=== PATIENT | female | born 1950 | race Caucasian/White ===

== ENCOUNTER → 2023-09-16 | Outpatient (CLI) | payer OTHER ==
[~2023-09-16] MED LIST: IOHEXOL 350 MG/ML 100ML INFUS..BTL IV ONE
== END | disposition home or self-care (01) ==
LOC: RAH 10:09
PROVIDERS: ATTEND Family Medicine
DX: Z12.31 Encounter for screening mammogram for malignant neoplasm of breast (principal); I71.20 Thoracic aortic aneurysm, without rupture, unspecified; I51.7 Cardiomegaly; M47.815 Spondylosis without myelopathy or radiculopathy, thoracolumbar region; K76.0 Fatty (change of) liver, not elsewhere classified
CPT/HCPCS: 71275; 77067; Q9967

== ENCOUNTER → 2023-09-30 | Outpatient (CLI) | payer OTHER ==
[~2023-09-30] MED LIST changes: +GADOTERATE MEGLUMINE 10 MMOL/20 ML VIAL IV ONE; -IOHEXOL 350 MG/ML 100ML INFUS..BTL IV ONE
== END | disposition home or self-care (01) ==
LOC: RAH 08:35
PROVIDERS: ATTEND Family Medicine
DX: D36.10 Benign neoplasm of peripheral nerves and autonomic nervous system, unspecified (principal); G31.9 Degenerative disease of nervous system, unspecified
CPT/HCPCS: 70553; A9575

== ENCOUNTER → 2023-10-17 | Outpatient (CLI) | payer OTHER | END | disposition home or self-care (01) | LOC: RAH 13:58 | PROVIDERS: ATTEND Family Medicine | DX: I08.0 Rheumatic disorders of both mitral and aortic valves (principal); M16.12 Unilateral primary osteoarthritis, left hip; R01.1 Cardiac murmur, unspecified; M25.552 Pain in left hip | CPT/HCPCS: 73502; 93306 ==

== ENCOUNTER 2024-04-01 13:21 | Emergency (ER) | payer OTHER ==
[~2024-04-01] VITALS: Ht 154.9 cm; Wt 59.0 kg
[2024-04-01 15:27] LABS: BASOPHILS # (AUTO) 0.05 K/uL (0.00-0.20); BASOPHILS % (AUTO) 0.6 % (0.0-5.0); EOSINOPHILS # (AUTO) 0.15 K/uL (0.00-0.70); EOSINOPHILS % (AUTO) 1.9 % (0.0-8.0); HEMATOCRIT 46.5 % (36-48); IMMATURE GRANULOCYTE ABSOLUTE 0.02 K/uL (0-1); LYMPHOCYTES # (AUTO) 1.5 K/uL (1.0-4.8); LYMPHOCYTES % (AUTO) 19.1 % (21.0-51.0); MEAN CORPUSCULAR HEMOGLOBIN 31.7 pg (27.0-33.0); MEAN CORPUSCULAR HGB CONC 33.8 g/dL (32.0-36.0); MEAN CORPUSCULAR VOLUME 93.9 fL (79-99); MONOCYTES # (AUTO) 0.4 K/uL (0.1-1.0); NEUTROPHILS # (AUTO) 5.7 K/uL (1.8-7.7); NEUTROPHILS % (AUTO) 73.1 % (40.0-77.0); PLATELET COUNT (AUTO) 244 K/uL (130-400); RED BLOOD CELL COUNT(AUTO) 4.95 MIL/uL (4.00-5.50); RED CELL DISTRIBUTION WIDTH 11.6 % (11.0-15.5); WHITE BLOOD COUNT (AUTO) 7.8 K/uL (4.8-10.8)
[2024-04-01 15:40] LABS: APPEARANCE,URINE CLEAR (CLEAR); BILIRUBIN,URINE NEGATIVE (NEGATIVE); COLOR,URINE YELLOW (YELLOW); GLUCOSE, URINE (UA) NEGATIVE (NEGATIVE); KETONES,URINE NEGATIVE (NEGATIVE); LEUKOCYTE ESTERASE ,URINE NEGATIVE Leu/uL (NEGATIVE); NITRATE,URINE NEGATIVE (NEGATIVE); OCCULT BLOOD,URINE NEGATIVE (NEGATIVE); PH,URINE 6.5 (5.0-8.0); PROTEIN,URINE 10 mg/dL (NEGATIVE); UROBILINOGEN,URINE 0.2 mg/dL (0.2-1.0)
[2024-04-01 15:40] LABS: CREATININE 0.6 mg/dL (0.5-1.0); POTASSIUM 4.3 mmol/L (3.5-5.1)
[2024-04-01 15:42] LABS: ADD UA MICROSCOPIC YES
[2024-04-01 15:50] LABS: ALBUMIN 3.8 g/dL (3.5-5.0); BILIRUBIN,TOTAL 0.7 mg/dL (0.2-1.0); TOTAL PROTEIN, SERUM 7.7 g/dL (6.0-8.3)
[2024-04-01 15:51] LABS: MUCUS,URINE RARE LPF (None Seen); SQUAMOUS EPITHELIAL CELL,UR RARE /HPF (0-2)
[2024-04-01] MEDS: HYDRALAZINE 20MG/ML VIAL IV ONE (18:26)
[2024-04-01 19:18] VITALS: BP 148/58; PULSE 62; RESP 18; O2SAT 96
== END 2024-04-01 19:53 | disposition home or self-care (01) ==
LOC: EDH 13:21
DX: I95.9 Hypotension, unspecified (principal); R42 Dizziness and giddiness; R19.7 Diarrhea, unspecified; E03.9 Hypothyroidism, unspecified; E78.00 Pure hypercholesterolemia, unspecified
CPT/HCPCS: 99285; 96374; 70450; 84484; 80053; 85025; 81001; 36415; 93005; J0360

== ENCOUNTER → 2024-09-02 | Outpatient (CLI) | payer OTHER ==
--- NOTE | 2024-09-02 15:39 | HMCIMG ---
US SOFT TISSUE LOWER EXTREMITY REASON: ABSCESS. COMPARISON: None TECHNIQUE: Right thigh ultrasound study was performed with specific attention given to the region of interest. FINDINGS: At the region of interest of right thigh, there is complex hypoechoic structure measuring 19 x 5 x 16 mm may be related to small abscess collection. Other possibilities cannot be excluded. IMPRESSION: At the region of interest of right thigh, there is complex hypoechoic structure measuring 19 x 5 x 16 mm may be related to small abscess collection. Other possibilities cannot be excluded.
== END | disposition home or self-care (01) ==
LOC: RAH 14:39
PROVIDERS: ATTEND Family Medicine
DX: L02.415 Cutaneous abscess of right lower limb (principal)
CPT/HCPCS: 76882

== ENCOUNTER → 2024-09-16 | Outpatient (CLI) | payer OTHER ==
--- NOTE | 2024-09-16 11:12 | HMCIMG ---
MAMMO SCREENING BILATERAL HISTORY: Screening mammogram. COMPARISON: 09/16/2023 TECHNIQUE: Bilateral screening mammogram with CAD was performed with craniocaudal and mediolateral oblique projections. FINDINGS: The breasts are extremely dense which lowers the sensitivity of mammogram. There is no evidence of a dominant mass, or suspicious microcalcification. There is no evidence of nipple retraction or skin thickening. Dystrophic calcifications are seen. IMPRESSION: 1. Stable mammogram. Patient was entered into a reminder system with a target due date for their next mammogram. BI-RADS: CATEGORY 2: BENIGN FINDINGS Recommend monthly self breast exam as well as annual clinical examination. A negative x-ray should not delay biopsy if a dominant or clinically suspicious mass is present, since 8-10% of cancers are not identified by mammography. Dense breasts particularly, may obscure an underlying neoplasm. Some of these may be detected clinically and therefore, clinical examination is an essential part of breast evaluation.
== END | disposition home or self-care (01) ==
LOC: RAH 10:16
PROVIDERS: ATTEND Family Medicine
DX: Z12.31 Encounter for screening mammogram for malignant neoplasm of breast (principal); R92.30 Dense breasts, unspecified
CPT/HCPCS: 77067

== ENCOUNTER → 2025-01-24 | Outpatient (CLI) | payer OTHER ==
--- NOTE | 2025-01-24 17:25 | HMCSR ---
APPROVED REPORT EXAM: Two-dimensional and M-mode echocardiogram with Doppler and color Doppler. INDICATION ICD: R01.1 Cardiac murmur, unspecified 2D Dimensions RVDd3.2 cmLVEF(%)72.6 (>50%)LVED Vol(simp.)69.0 mL IVSd0.7 (0.7-1.1cm)FS(%)42 %LVES Vol(simp.)29.0 mL LVDd4.8 (3.8-5.6cm)LA (2D)3.6 (1.6-4.0cm)LVEF(%, simp.)59 % PWd1.0 (0.7-1.1cm)Ao Root(2D)3.0 (2.0-3.7cm)LA ESV INDEX (BP)37.69 mL/m2 LVDs2.8 (2.5-4.0cm)LVOT diam2.2 (1.8-2.4cm) IVC diam1.4 cm M-Mode Dimensions EPSS0.6 cm LA (MM)4.3 (1.6-4.0cm) Ao Root(MM)2.8 (2.0-3.7cm) Aortic Valve AoV Vmax1.2 m/Angie Peak GR6.2 mmHgLVOT Vmax1.2 m/s AoV VTI0.3 mAo Mean GR3.6 mmHgLVOT VTI0.27 m DWIGHT (VMAX)3.56 cm2Al P1/2T350 msAVA (VTI) 3.6 cm2 Mitral Valve MV E Vmax67.0 cm/sDECEL Lfyd784 ms MV A Vmax82.4 cm/sP 1/2 T71 ms E/A ratio0.8MVA (PHT)3.1 cm2 TDI E/E' Qntvcv37.3E/E' Lateral9.8 Medial E' Peak V3.67 cm/sLateral E' Peak V6.83 cm/s Tricuspid Valve TR Vmax2.4 m/sRVSP22.6 mmHg TR Peak GR22.6 mmHg Left Ventricle The left ventricle is normal size. There is normal LV segmental wall motion. There is normal left greg tricular wall thickness. LVEF is 60-65%. Stage I diastolic dysfunction. Right Ventricle The right ventricle is normal size. The right ventricular systolic function is normal. Atria The left atrium is mildly dilated. The right atrium size is normal. Aortic Valve The aortic valve is normal in structure. Mild aortic regurgitation is present. There is no aortic freddie vular stenosis. Mitral Valve The mitral valve is normal in structure. There is trace of mitral valve regurgitation noted. There is no mitral valve stenosis. Tricuspid Valve The tricuspid valve is normal in structure. There is trace of tricuspid valve regurgitation noted. Pulmonic Valve The pulmonary valve is normal in structure. There is no pulmonic valvular regurgitation. Great Vessels The aortic root is normal in size. The IVC is normal in size and collapses >50% with inspiration. Pericardium There is no pericardial effusion. Other Information Quality : Adequate Conclusion Stage I diastolic dysfunction. LVEF is 60-65%. There is normal LV segmental wall motion.
== END | disposition home or self-care (01) ==
LOC: RAH 12:36
PROVIDERS: ATTEND Internal Medicine
DX: I35.1 Nonrheumatic aortic (valve) insufficiency (principal); I51.7 Cardiomegaly; R01.1 Cardiac murmur, unspecified
CPT/HCPCS: 93306

== ENCOUNTER → 2025-08-09 | Outpatient (CLI) | payer OTHER ==
--- NOTE | 2025-08-10 00:41 | HMCIMG ---
STUDY: MRI Brain with Contrast HISTORY: Post-surgical follow-up for right posterior fossa lesion; evaluation for recurrence. TECHNIQUE: Multiplanar, multisequence MRI of the brain performed before and after intravenous contrast administration. Sequences included axial and sagittal T1-weighted, T2-weighted, FLAIR, DWI/ADC, GRE/SWI, and post-contrast T1-weighted images in axial, coronal, and sagittal planes. Contrast: 13 cc of intravenous Clariscan administered. COMPARISON: None provided. FINDINGS: Cerebral Parenchyma: Age-appropriate diffuse cerebral and cerebellar volume loss. Scattered punctate T2/FLAIR hyperintense foci in bilateral fronto-parietal periventricular and deep white matter consistent with chronic small-vessel ischaemic changes (Fazekas grade I). Focal subacute ischaemic changes are noted in the left peritrigonal white matter showing T2/FLAIR hyperintensity without diffusion restriction or enhancement. No acute infarction, haemorrhage, or mass effect. Posterior Fossa and Post-surgical Region: Post-surgical changes are seen in the right posterior fossa with gliotic foci in the right lateral cerebellar hemisphere corresponding to the previous operative bed. No new parenchymal enhancement or abnormal diffusion restriction at the surgical site. Extra-axial Spaces and Lesions: A well-defined extra-axial enhancing lesion measuring 1.2 ??? 0.6 cm is identified in the right cerebello-pontine angle near the internal auditory meatus/porus acousticus. The lesion demonstrates isointense signal on T1, mildly hyperintense signal on T2, homogeneous enhancement on post-contrast images, and no diffusion restriction or blooming. The interface with adjacent cerebellar tissue is preserved. The internal auditory canal is unremarkable. Brainstem and Cerebellum: Brainstem is normal in signal and contour. The left cerebellar hemisphere appears normal. Right cerebellar hemisphere shows post-surgical gliosis as described. Ventricular System and Midline Structures: Lateral, third, and fourth ventricles are within normal size and configuration. Midline structures are central. Basal cisterns are patent. No hydrocephalus. Pituitary, Orbits, and Skull Base: Pituitary gland, optic chiasm, and orbits appear normal. Skull base structures are intact. No marrow-replacing lesion. Sinuses and Mastoid Air Cells: Paranasal sinuses and mastoid air cells are clear. IMPRESSION: * Post-surgical changes in right posterior fossa with gliotic foci in right lateral cerebellar hemisphere. No abnormal enhancement or diffusion restriction in operative bed. * Small extra-axial enhancing lesion measuring 1.2 ??? 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 * Age-appropriate diffuse cerebral volume loss with Fazekas grade I chronic small-vessel ischaemic changes in bilateral fronto-parietal white matter. * Focal subacute ischemic changes in left peritrigonal white matter. * Radiologic???clinical correlation: postoperative gliosis with stable right cerebellopontine angle enhancing lesion, likely benign residual or recurrent schwannomatous tissue, with background microangiopathic ischaemic change consistent with age and vascular risk profile. /Hume
== END | disposition home or self-care (01) ==
LOC: RAH 12:52
PROVIDERS: ATTEND Internal Medicine
DX: I67.82 Cerebral ischemia (principal); G93.89 Other specified disorders of brain; Z86.018 Personal history of other benign neoplasm
CPT/HCPCS: 70553; A9575